=== PATIENT | female | born 1960 | race Caucasian/White ===

== ENCOUNTER → 2017-02-02 | Outpatient (CLI) | payer OTHER ==
[~2017-02-02] MED LIST: ALLERGY PILL; ATEN50TA PO; BUDE10.2 IH; CIPR-225 PO; DOXY100T61 PO; HYDR12.5 PO; IOHEXOL 350 MG/ML 100 ML (OMNIPAQUE 350) VIAL IV ONE; METR500T PO; NS 100 ML (IVPB) BAG IV ONE; PRD50T PO; RABE20TA PO
--- NOTE | 2017-02-02 14:06 | Diagnostic Imaging Report ---
PROCEDURE: CT head with and without contrast. TECHNIQUE: Multiple contiguous axial images were obtained through the brain before and after the administration of intravenous contrast. INDICATION: Fell two months ago, headache. FINDINGS: There are no prior studies available for comparison. On the pre intravenous contrast series, there is no mass, shift of the midline, or hemorrhage. Following administration of intravenous contrast, there is no abnormal enhancement to suggest a neoplastic or infectious process. The [place] of [place], where visualized, shows no sign of aneurysm. The ventricles are not abnormally dilated. The bone windows show no sign of a fracture or of a destructive lesion. There is mild cortical atrophy present. The degree of atrophy is consistent with the patient's age. The orbits are symmetrical and within normal limits. The sinuses where visualized are generally clear. IMPRESSION: 1. There is no evidence for an acute intracranial abnormality. There is no abnormal enhancement on the post contrast series to suggest a neoplastic or infectious process either. 2. If clinical concern regarding an underlying abnormality persists, then MRI will be recommended for further study. Dictated by: Dictated on workstation # [id number]
== END ==
LOC: RAD 11:11
PROVIDERS: ATTEND Nurse Practitioner Community Health
DX: R51 Headache (principal)
CPT/HCPCS: 70470

== ENCOUNTER 2021-01-28 16:12 | Emergency (ER) | payer SELFPAY ==
[~2021-01-28] VITALS: Ht 165 cm; Wt 100.2 kg
[~2021-01-28 16:12] MED LIST changes: -IOHEXOL 350 MG/ML 100 ML (OMNIPAQUE 350) VIAL IV ONE; -NS 100 ML (IVPB) BAG IV ONE
[2021-01-28] MEDS ORDERED: CALCIUM CHLORIDE 1 GM/10 ML (IMS) SYR INJ ONE (16:14)
[2021-01-28] MEDS ORDERED: SODIUM BICARB 8.4% 50 MEQ/50 ML (ABBOTT) SYR INJ ONE (16:14)
[2021-01-28] MEDS ORDERED: ATROPINE INJECTION 1 MG/10 ML SYR (ABBOTT) INJ ONE (16:14)
[2021-01-28] MEDS ORDERED: EPINEPHrine 0.1 MG/ML 10 ML (HOSPIRA) SYR INJ ONE (16:14)
[2021-01-28] MEDS ORDERED: NALOXONE 2 MG/2 ML (NARCAN) SYR IV ONE (16:14)
[2021-01-28] MEDS ORDERED: LACTATED RINGERS 1,000 ML IV ONE (16:30)
[2021-01-28 16:31] LABS: BASOPHILS % (AUTO) 0 % (0-10); EOSINOPHILS # (AUTO) 0.1 10^3/uL (0.0-0.3); EOSINOPHILS % (AUTO) 1 % (0-10); HEMATOCRIT 44 % (35-52); HEMOGLOBIN 14.6 g/dL (11.5-16.0); LYMPHOCYTES # (AUTO) 1.1 10^3/uL (1.0-4.0); LYMPHOCYTES % (AUTO) 10 % (12-44); MEAN CORPUSCULAR HEMOGLOBIN 30 pg (25-34); MEAN CORPUSCULAR HGB CONC 34 g/dL (32-36); MEAN CORPUSCULAR VOLUME 90 fL (80-99); MONOCYTES # (AUTO) 0.7 10^3/uL (0.0-1.0); MONOCYTES % (AUTO) 7 % (0-12); NEUTROPHILS # (AUTO) 8.4 10^3/uL (1.8-7.8); NEUTROPHILS % (AUTO) 81 % (42-75); PLATELET COUNT 342 10^3/uL (130-400); WHITE BLOOD COUNT 10.4 10^3/uL (4.3-11.0)
[2021-01-28 16:48] LABS: ALBUMIN 3.4 GM/DL (3.2-4.5); CHLORIDE 101 MMOL/L (98-107); POTASSIUM 3.5 MMOL/L (3.6-5.0); SODIUM 138 MMOL/L (135-145)
[2021-01-28 16:49] VITALS: BP_SYST 100; BP_SYST 108; BP_SYST 120; BP_DIAS 69; BP_DIAS 73; BP_DIAS 94
[2021-01-28 16:50] LABS: CALCIUM 9.4 MG/DL (8.5-10.1)
[2021-01-28 16:51] LABS: GLUCOSE 252 MG/DL (70-105); TOTAL PROTEIN 7.7 GM/DL (6.4-8.2)
[2021-01-28 16:52] LABS: BILIRUBIN,TOTAL 0.9 MG/DL (0.1-1.0); CARBON DIOXIDE 21 MMOL/L (21-32)
[2021-01-28 16:54] LABS: ALKALINE PHOSPHATASE 93 U/L (40-136); CREATININE SERUM 1.21 MG/DL (0.60-1.30); GFR ESTIMATED 45
[2021-01-28 16:55] LABS: BUN/CREATININE RATIO 17
[2021-01-28 16:55] LABS: BILIRUBIN,URINE NEGATIVE (NEGATIVE); CLARITY,URINE SL CLOUDY; COLOR,URINE YELLOW; GLUCOSE, URINE (UA) 3+ (NEGATIVE); KETONES,URINE NEGATIVE (NEGATIVE); LEUKOCYTE ESTERASE ,URINE TRACE (NEGATIVE); NITRITE,URINE NEGATIVE (NEGATIVE); PH,URINE 5.5 (5-9); PROTEIN,URINE NEGATIVE (NEGATIVE)
[2021-01-28 16:57] LABS: ALANINE AMINOTRANSFERASE 30 U/L (0-55)
[2021-01-28 17:01] LABS: BACTERIA,URINE TRACE /HPF; RBC,URINE 0-2 /HPF
--- NOTE | 2021-01-28 17:37 | ED General ---
General Chief Complaint: General Problems/Pain Stated Complaint: WEAKNESS Nursing Triage Note: PT PRESENTS TO ED VIA EMS FROM HOME WITH COMPLAINTS OF GENERALIZED WEAKNESS AND MALAISE X 4 WEEKS. PT ALSO REPORTS SHE HAS BEEN OUT OF HER INSULIN X 3 1/2 WEEKS. Source of Information: Patient Exam Limitations: No Limitations History of Present Illness Date Seen by Provider: Jan 28, 2021 Time Seen by Provider: 16:12 Initial Comments 60-year-old female with past medical history of diabetes coming in due to general malaise, general weakness, and cough and vomiting that have since passed. Symptoms have been ongoing for over 1 month. The cough and vomiting lasted for less than a week. The general malaise has continued however. Has some dyspnea but nothing significant. Is otherwise denying any other acute complaints. Of note, she has been out of her injection medication for diabetes which she is unsure of the name because she cannot afford it and does not have insurance. She has continued to take Metformin. Allergies and Home Medications Allergies Coded Allergies: No Known Drug Allergies (Unverified , 02/18/10) Home Medications Atenolol 50 Mg Tablet, 50 MG PO DAILY, (Reported) Budesonide/Formoterol Fumarate 10.2 Gm Hfa.aer.ad, 10.2 PUFF IH BID, (Reported) Ciprofloxacin HCl 500 Mg Tablet, 500 MG PO BID Prescribed by: MARISELA STERN on 02/05/15 1049 Hydrochlorothiazide 12.5 Mg Capsule, 12.5 MG PO BID, (Reported) Metronidazole 500 Mg Tablet, 500 MG PO TID Prescribed by: MARISELA STERN on 02/05/15 1049 Rabeprazole Sodium 20 Mg Tablet.dr, 20 MG PO DAILY, (Reported) Patient Home Medication List Home Medication List Reviewed: Yes Review of Systems Review of Systems Constitutional: No fever EENTM: No blurred vision Respiratory: cough Cardiovascular: No chest pain Gastrointestinal: No abdominal pain, No diarrhea; nausea; No vomiting Genitourinary: No dysuria Musculoskeletal: No back pain Skin: No rash Psychiatric/Neurological: Denies Anxiety, Denies Depressed Hematologic/Lymphatic: No Symptoms Reported Immunological/Allergic: no symptoms reported All Other Systems Reviewed Negative Unless Noted: Yes Past Vmemfzz-Tzxdob-Kdcacs Hx Patient Social History Tobacco Use?: No Smoking Status: Former Smoker Substance use?: No Alcohol Use?: No Pt feels they are or have been: No Past Medical History Surgery/Hospitalization HX: pmh: dm, htn 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 oz. 103.501426km; 36.00 BMI Method: General Appearance: No Apparent Distress, WD/WN HEENT: PERRL/EOMI, TMs Normal, Pharynx Normal Neck: Full Range of Motion, Normal Inspection, Non Tender, Supple Respiratory: Chest Non Tender, Lungs Clear, Normal Breath Sounds, No Accessory Muscle Use, No Respiratory Distress Cardiovascular: Regular Rate, Rhythm, No JVD, Normal Peripheral Pulses Gastrointestinal: Normal Bowel Sounds, Non Tender, Soft; No Distended, No Guarding Back: Normal Inspection, No CVA Tenderness, No Vertebral Tenderness Extremity: Normal Capillary Refill, Normal Inspection, Non Tender, No Calf Tenderness Neurologic/Psychiatric: Alert, No Motor/Sensory Deficits, Normal Mood/Affect Skin: Normal Color, Warm/Dry Lymphatic: No Adenopathy Progress/Results/Core Measures Suspected Sepsis SIRS Temperature: Pulse: 99 Respiratory Rate: 18 Laboratory Tests 01/28/21 16:20: White Blood Count 10.4 Blood Pressure 100 /69 Mean: 79 Laboratory Tests 01/28/21 16:20: Creatinine 1.21, Platelet Count 342, Total Bilirubin 0.9 Results/Orders Lab Results Laboratory Tests Test 01/28/21 16:20 01/28/21 16:25 01/28/21 16:33 Range/Units White Blood Count 10.4 4.3-11.0 10^3/uL Red Blood Count 4.84 3.80-5.11 10^6/uL Hemoglobin 14.6 11.5-16.0 g/dL Hematocrit 44 35-52 % Mean Corpuscular Volume 90 80-99 fL Mean Corpuscular Hemoglobin 30 25-34 pg Mean Corpuscular Hemoglobin Concent 34 32-36 g/dL Red Cell Distribution Width 13.6 10.0-14.5 % Platelet Count 342 130-400 10^3/uL Mean Platelet Volume 11.0 9.0-12.2 fL Immature Granulocyte % (Auto) 1 % Neutrophils (%) (Auto) 81 H 42-75 % Lymphocytes (%) (Auto) 10 L 12-44 % Monocytes (%) (Auto) 7 0-12 % Eosinophils (%) (Auto) 1 0-10 % Basophils (%) (Auto) 0 0-10 % Neutrophils # (Auto) 8.4 H 1.8-7.8 10^3/uL Lymphocytes # (Auto) 1.1 1.0-4.0 10^3/uL Monocytes # (Auto) 0.7 0.0-1.0 10^3/uL Eosinophils # (Auto) 0.1 0.0-0.3 10^3/uL Basophils # (Auto) 0.0 0.0-0.1 10^3/uL Immature Granulocyte # (Auto) 0.1 0.0-0.1 10^3/uL Sodium Level 138 135-145 MMOL/L Potassium Level 3.5 L 3.6-5.0 MMOL/L Chloride Level 101 98-107 MMOL/L Carbon Dioxide Level 21 21-32 MMOL/L Anion Gap 16 H 5-14 MMOL/L Blood Urea Nitrogen 20 H 7-18 MG/DL Creatinine 1.21 0.60-1.30 MG/DL Estimat Glomerular Filtration Rate 45 BUN/Creatinine Ratio 17 Glucose Level 252 H 70-105 MG/DL Glucometer 283 H 70-110 MG/DL Calcium Level 9.4 8.5-10.1 MG/DL Corrected Calcium 9.9 8.5-10.1 MG/DL Total Bilirubin 0.9 0.1-1.0 MG/DL Aspartate Amino Transf (AST/SGOT) 30 5-34 U/L Alanine Aminotransferase (ALT/SGPT) 30 0-55 U/L Alkaline Phosphatase 93 40-136 U/L Troponin I < 0.028 <0.028 NG/ML B-Type Natriuretic Peptide 13.2 <100.0 PG/ML Total Protein 7.7 6.4-8.2 GM/DL Albumin 3.4 3.2-4.5 GM/DL SARS-CoV-2 RNA (RT-PCR) Detected H Not Detecte Urine Color YELLOW Urine Clarity SL CLOUDY Urine pH 5.5 5-9 Urine Specific [place] 1.025 H 1.016-1.022 Urine Protein NEGATIVE NEGATIVE Urine Glucose (UA) 3+ H NEGATIVE Urine Ketones NEGATIVE NEGATIVE Urine Nitrite NEGATIVE NEGATIVE Urine Bilirubin NEGATIVE NEGATIVE Urine Urobilinogen 0.2 < = 1.0 MG/DL Urine Leukocyte Esterase TRACE H NEGATIVE Urine RBC (Auto) TRACE-I NEGATIVE Urine RBC 0-2 /HPF Urine WBC 10-25 H /HPF Urine Squamous Epithelial Cells 2-5 /HPF Urine Crystals NONE /LPF Urine Bacteria TRACE /HPF Urine Casts NONE /LPF Urine Mucus SMALL H /LPF Urine Culture Indicated YES My Orders Orders - GARRETT IRIZARRY MD BNP (01/28/21 16:24) Cbc With Automated Diff (01/28/21 16:24) Comprehensive Metabolic Panel (01/28/21 16:24) Ua Culture If Indicated (01/28/21 16:24) Accucheck Stat ONCE (01/28/21 16:24) Troponin I (01/28/21 16:24) Ed Iv/Invasive Line Start (01/28/21 16:24) Lactated Ringers (Lr 1000 Ml Iv Solution (01/28/21 16:30) Ekg Tracing (01/28/21 16:24) Chest 1 View, Ap/Pa Only (01/28/21 16:24) Covid 19 Inhouse Test (01/28/21 16:24) Urine Culture (01/28/21 16:33) Tenecteplase (Tnkase) (01/28/21 18:29) Medications Given in ED Current Medications Medications Dose Ordered Sig/Earlene Route Start Time Stop Time Status Last Admin Dose Admin Lactated Ringer's 1,000 ml @ 0 mls/hr Q0M ONCE IV 01/28/21 16:30 01/28/21 16:31 DC 01/28/21 16:42 0 MLS/HR Vital Signs/I&O 01/28/21 01/28/21 01/28/21 16:15 16:49 18:01 Temp 36.8 Pulse 87 87 87 89 99 Resp 18 16 B/P (MAP) 124/77 (93) 120/94 (103) 95/61 108/73 (85) 100/69 (79) Pulse Ox 95 98 Capillary Refill : Less Than 3 Seconds Blood Pressure Mean: 79 Point of Care Testing Finger Stick Blood Glucose: 283 Progress Note : Progress Note 60-year-old female with above history coming in for general malaise that has been ongoing for the past month in the setting of it starting with a cough and vomiting. ABCs were intact and vitals were stable on presentation. Physical exam reassuring with no focal abnormalities including a soft nontender abdomen and clear lung sounds. Orthostatics were obtained with a blood pressure laying down of 120 systolic going to 100 systolic standing and heart rate went from 87- 99 upon standing. Part of her dehydration is likely due to her hyperglycemia with lack of her insulin. She is still taking Metformin. An IV was placed and she was given a bolus of IV fluids for her orthostatic blood pressure. I was suspicious given the cough at the beginning of the illness, however with this being going on a month I thought it was unlikely to be Covid. Unfortunately, she is PCR positive for Covid. This would explain her general malaise. EKG sinus rhythm without obvious abnormality. Labs otherwise remarkable for negative troponin, normal electrolytes, normal creatinine, normal BNP. Chest x-ray with signs of COVID infiltrates. At that time the patient was feeling better, and was wanting to go home. She was walking out with the information technology analyst and then said she was having some leg pain at that time and wanted a wheel chair. The tech went for a wheel chair <60 seconds and on arrival the patient was on the ground agonal breathing. She was taken back to the room immediately and no pulse was felt. CPR was started, an IO was placed, and she was intubated. She went through numerous rounds of CPR with PEA as her rhythm. Given the new leg pain she had just complained of, positive COVID test with likely hypercoagulable state, and now PEA arrest, my highest differential was a PE. Because of this, she was given a bolus of Tenectaplase, and CPR was continued for about 20 minutes longer afterwards. Without ROSC, time of was called at 18:54. I contacted the daughter which was her next of kin, Yasmeen. She later came and was with the patient. ECG EKG : EKG Time: 16:42 Rate: 89 Rhythm: Normal Sinus Comment Sinus rhythm with a rate of 89, narrow QRS, normal axis, no significant ST changes or T wave abnormalities Diagnostic Imaging Diagonstic Imaging: X[facility] [place], [place] NAME: MAY CASTRO MED REC#: [id number] PT STATUS: REG ER : 1960 PHYSICIAN: GARRETT IRIZARRY MD ADMIT DATE: 01/28/21/ER Signed Date of Exam:01/28/21 CHEST 1 VIEW, AP/PA ONLY INDICATION: Weakness. EXAMINATION: Single view chest. FINDINGS: There is vague five lobe pulmonary opacity as a new finding from prior. While nonspecific, radiographically, it would be compatible with typical groundglass opacities in the setting of Covid. No effusion, pneumothorax or failure pattern. IMPRESSION: New five lobe vague pulmonary opacities, given the history, are suspicious for diffuse pulmonary involvement by Covid. Dictated by: Dictated on workstation # [id number] Dict: 01/28/[id number] Trans: 01/28/211755 [facility] [id number] Interpreted by: GENARO PLUMMER Electronically signed by: GENARO PLUMMER 01/28/211755 Departure Impression Primary Impression: COVID-19 Disposition: 20 Condition: Stable Departure-Patient Inst. Referrals: [facility] (PCP/Family) Primary Care Physician GARRETT IRIZARRY MD Jan 28, 2021 17:36
--- NOTE | 2021-01-28 17:50 | Diagnostic Imaging Report ---
INDICATION: Weakness. EXAMINATION: Single view chest. FINDINGS: There is vague five lobe pulmonary opacity as a new finding from prior. While nonspecific, radiographically, it would be compatible with typical groundglass opacities in the setting of Covid. No effusion, pneumothorax or failure pattern. IMPRESSION: New five lobe vague pulmonary opacities, given the history, are suspicious for diffuse pulmonary involvement by Covid. Dictated by: Dictated on workstation # [id number]
[2021-01-28] MEDS ORDERED: TENECTEPLASE 50 MG VIAL IV ONE (18:29)
[2021-01-28 18:32] VITALS: BP 0/0
== END 2021-01-28 21:27 | disposition expired ==
LOC: EDUNIT# 16:12 → ER 16:13
DX: U07.1 COVID-19 (principal); I10 Essential (primary) hypertension; E11.9 Type 2 diabetes mellitus without complications; Z87.891 Personal history of nicotine dependence; Z79.84 Long term (current) use of oral hypoglycemic drugs
CPT/HCPCS: 31500; 36415; 71045; 80053; 81000; 82947; 83880; 84484; 85025; 87088; 87636; 93005